=== PATIENT | male | born 1940 | race Caucasian/White ===

== ENCOUNTER 2022-04-11 11:13 | Observation (INO) ==
[2022-04-11 12:31] LABS: Basophils % 0.2 %; Immature Granulocytes % 0.3 % (0-4); Red Cell Distribution Width 14.3 % (11.5-14.5); White Blood Count 6.5 K/mcL (4.3-11.1)
[2022-04-11 12:34] LABS: Eosinophils % 0.2 %; Hematocrit 39.8 % (37.5-50.1); Hemoglobin 12.7 g/dL (12.9-16.9); Immature Platelets 4.4 % (1.1-6.1); Lymphocytes # 0.6 K/mcL (0.6-4.6); Lymphocytes % 9.5 %; Mean Corpuscular HGB Conc 31.9 g/dL (31.6-35.5); Mean Corpuscular Hemoglobin 30.1 pg (28.0-33.3); Mean Corpuscular Volume 94.3 fL (83.0-100.0); Mean Platelet Volume 10.2 fL (9.4-12.4); Monocytes # 0.3 K/mcL (0.0-1.3); Monocytes % 4.8 %; Neutrophils # 5.5 K/mcL (1.6-8.9); Platelet Count 113 K/mcL (140-400); Red Blood Count 4.22 M/mcL (4.19-5.50)
[2022-04-11 13:16] LABS: BUN/Creatinine Ratio 17 (6-26); Blood Urea Nitrogen 14 mg/dL (8-23); Calcium 8.8 mg/dL (8.6-10.3); Carbon Dioxide 28 mEq/L (23-29); Chloride 100 mEq/L (98-107); Glucose 178 mg/dL (70-105); Osmolality,Calculated 285 (280-300); Potassium 4.1 mEq/L (3.5-5.1); Sodium 135 mEq/L (136-145); Troponin I < 0.03 ng/mL (< 0.04)
[2022-04-11] MEDS ORDERED: Furosemide 40 MG/4 ML VIAL IVP ONE (13:45)
[2022-04-11] MEDS ORDERED: Nitroglycerin 0.4 MG TAB.SUBL SL STA (13:45)
[2022-04-11] MEDS ORDERED: Naloxone 0.4 MG/ML INJ IVP PRN (14:12)
[2022-04-11] MEDS ORDERED: Acetaminophen 325 MG TABLET PO ONE (20:39)
[2022-04-11] MEDS: Magnesium Oxide 400 MG TABLET PO SCH (20:43)
[2022-04-11] MEDS: Pregabalin 75 MG CAPSULE PO SCH (20:43)
[2022-04-11] MEDS: Apixaban 5 MG TABLET PO SCH (20:45)
[2022-04-11] MEDS: Melatonin 3 MG TABLET PO PRN (20:50)
[2022-04-12 02:38] LABS: Basophils % 0.1 %; Eosinophils % 0.1 %; Hematocrit 35.4 % (37.5-50.1); Hemoglobin 11.6 g/dL (12.9-16.9); Immature Granulocytes % 0.4 % (0-4); Lymphocytes # 1.1 K/mcL (0.6-4.6); Lymphocytes % 15.6 %; Mean Corpuscular HGB Conc 32.8 g/dL (31.6-35.5); Mean Corpuscular Hemoglobin 29.9 pg (28.0-33.3); Mean Corpuscular Volume 91.2 fL (83.0-100.0); Mean Platelet Volume 9.8 fL (9.4-12.4); Monocytes # 0.5 K/mcL (0.0-1.3); Monocytes % 7.2 %; Neutrophils # 5.5 K/mcL (1.6-8.9); Platelet Count 107 K/mcL (140-400); Red Blood Count 3.88 M/mcL (4.19-5.50); Red Cell Distribution Width 14.1 % (11.5-14.5); Segmented Neutrophils % 76.6 %; White Blood Count 7.1 K/mcL (4.3-11.1)
[2022-04-12 02:58] LABS: BUN/Creatinine Ratio 21 (6-26); Blood Urea Nitrogen 15 mg/dL (8-23); Calcium 8.2 mg/dL (8.6-10.3); Carbon Dioxide 29 mEq/L (23-29); Chloride 99 mEq/L (98-107); Glucose 131 mg/dL (70-105); Osmolality,Calculated 287 (280-300); Potassium 3.5 mEq/L (3.5-5.1); Sodium 137 mEq/L (136-145)
[2022-04-12] MEDS: Pregabalin 75 MG CAPSULE PO SCH ×2 (07:52→19:53)
[2022-04-12] MEDS: Apixaban 5 MG TABLET PO SCH (07:52)
[2022-04-12] MEDS: Magnesium Oxide 400 MG TABLET PO SCH ×2 (07:53→19:52)
[2022-04-12] MEDS: amLODIPine 5 MG TABLET PO SCH (07:54)
[2022-04-12] MEDS: Furosemide 40 MG/4 ML VIAL IVP SCH (07:55)
[2022-04-12] MEDS ORDERED: Iopamidol - 370 500 ML MLS IVP ONE (10:30)
[2022-04-12] MEDS ORDERED: *HR* Dextrose 50 % in Water (Syg) 50 ML SYRINGE IVP PRN (10:45)
[2022-04-12] MEDS ORDERED: Dextrose Gel 15 GM/37.5 ML TUBE PO PRN ×2 (10:45)
[2022-04-12] MEDS ORDERED: D5% in Water 1,000 ML IVC PRN (10:45)
[2022-04-12] MEDS: Insulin LISPRO 300 UNITS/3 ML VIAL SUBQ SCH ×2 (11:22→16:26)
[2022-04-12] MEDS ORDERED: levoFLOXacin 750 MG TABLET PO ONE (17:42)
[2022-04-12] MEDS: Acetaminophen 325 MG TABLET PO PRN (19:52)
[2022-04-12] MEDS: Melatonin 3 MG TABLET PO PRN (19:56)
[2022-04-13] MEDS: Acetaminophen 325 MG TABLET PO PRN (03:26)
[2022-04-13 04:54] VITALS: O2SAT 94
[2022-04-13 06:31] LABS: Basophils % 0.2 %; Hemoglobin 12.3 g/dL (12.9-16.9); Mean Corpuscular Volume 91.7 fL (83.0-100.0); Red Cell Distribution Width 13.9 % (11.5-14.5)
[2022-04-13 06:33] LABS: Eosinophils # 0.1 K/mcL (0.0-0.6); Eosinophils % 1.2 %; Hematocrit 37.8 % (37.5-50.1); Immature Granulocytes % 0.3 % (0-4); Immature Platelets 4.5 % (1.1-6.1); Lymphocytes # 1.1 K/mcL (0.6-4.6); Lymphocytes % 18.4 %; Mean Corpuscular HGB Conc 32.5 g/dL (31.6-35.5); Mean Corpuscular Hemoglobin 29.9 pg (28.0-33.3); Monocytes # 0.4 K/mcL (0.0-1.3); Monocytes % 7.4 %; Neutrophils # 4.2 K/mcL (1.6-8.9); Platelet Count 133 K/mcL (140-400); Red Blood Count 4.12 M/mcL (4.19-5.50); Segmented Neutrophils % 72.5 %; White Blood Count 5.8 K/mcL (4.3-11.1)
[2022-04-13 07:09] LABS: Magnesium 2.2 mg/dL (1.6-2.6)
[2022-04-13 07:12] LABS: Calcium 8.6 mg/dL (8.6-10.3); Potassium 3.5 mEq/L (3.5-5.1)
[2022-04-13 07:49] VITALS: BP 158/76; PULSE 92; TEMP 98
[2022-04-13] MEDS: Magnesium Oxide 400 MG TABLET PO SCH (07:55)
[2022-04-13] MEDS: Pregabalin 75 MG CAPSULE PO SCH (07:56)
[2022-04-13] MEDS: amLODIPine 5 MG TABLET PO SCH (07:56)
[2022-04-13] MEDS: Insulin LISPRO 300 UNITS/3 ML VIAL SUBQ SCH (07:57)
[2022-04-13] MEDS: Furosemide 40 MG/4 ML VIAL IVP SCH (07:59)
[2022-04-13] MEDS ORDERED: levoFLOXacin 750 MG TABLET PO SCH (18:00)
== END 2022-04-13 11:18 | disposition home or self-care (01) ==
LOC: EMEROOARM 11:13 → 2ANU 11:13 → SUATTDRO 16:59 → 2ANU 17:27
PROVIDERS: ADMIT Internal Medicine; ATTEND Internal Medicine